=== PATIENT | male | born 1965 | race Two or more races ===

== ENCOUNTER 2018-08-27 07:15 | Emergency (ER) | payer OTHER ==
[~2018-08-27] VITALS: Ht 182.9 cm; Wt 95.3 kg
[2018-08-27] MEDS ORDERED: HUMULIN N100 UNIT/2 (07:51)
[2018-08-27] MEDS ORDERED: NEURONTIN300 MG PO (08:51)
== END 2018-08-27 09:08 | disposition home or self-care (01) ==
LOC: ER 07:15
DX: M54.32 Sciatica, left side (principal)

== ENCOUNTER 2019-02-12 16:47 | Emergency (ER) | payer OTHER ==
[~2019-02-12] VITALS: Ht 180.3 cm; Wt 98.0 kg
[~2019-02-12 16:47] MED LIST: HUMULIN N100 UNIT/2; NEURONTIN300 MG PO
[2019-02-12] MEDS ORDERED: NAPROXEN500 M1 PO (17:53)
[2019-02-12] MEDS ORDERED: PERCOCET 5-3251 EACH PO (17:53)
[2019-02-12] MEDS ORDERED: ORPHENADRINE C100 MG PO (17:53)
== END 2019-02-12 18:04 | disposition home or self-care (01) ==
LOC: ER 16:47
DX: M79.18 Myalgia, other site (principal)

== ENCOUNTER 2019-02-16 19:27 | Emergency (ER) | payer OTHER ==
[~2019-02-16] VITALS: Ht 180.3 cm; Wt 95.3 kg
[~2019-02-16 19:27] MED LIST changes: +NAPROXEN500 M1 PO; +ORPHENADRINE C100 MG PO; +PERCOCET 5-3251 EACH PO
== END 2019-02-16 22:50 | disposition home or self-care (01) ==
LOC: ER 19:27
DX: E11.40 Type 2 diabetes mellitus with diabetic neuropathy, unspecified (principal)